=== PATIENT | female | born 1980 | race Caucasian/White ===

== ENCOUNTER 2017-05-24 02:42 | Outpatient (CLI) | payer MEDICAID ==
[2017-05-24 03:33] LABS: ADD UMIC NO; UR ASCORBIC ACID NEGATIVE (NEGATIVE); UR BILIRUBIN (Dip) NEGATIVE (NEGATIVE); UR BLOOD (Dip) NEGATIVE (NEGATIVE); UR CLARITY CLEAR (CLEAR); UR COLOR COLORLESS (YELLOW); UR GLUCOSE (Dip) NEGATIVE (NEGATIVE); UR KETONES (Dip) NEGATIVE (NEGATIVE); UR LEUKOCYTE ESTERASE (Dip) NEGATIVE Leu/ul (NEGATIVE); UR NITRITE (Dip) NEGATIVE (NEGATIVE); UR SPECIFIC GRAVITY (Dip) 1.002 (1.003-1.030); UR TOTAL PROTEIN (Dip) NEGATIVE (NEGATIVE); UR UROBILINOGEN (Dip) NEGATIVE (NEGATIVE)
== END 2017-05-24 05:45 | disposition home or self-care (01) ==
LOC: OBT 02:42 → L-D 02:45 → OBT 05:45
DX: O26.892 Other specified pregnancy related conditions, second trimester (principal); Z3A.20 20 weeks gestation of pregnancy; R10.2 Pelvic and perineal pain
CPT/HCPCS: 76817; 81003

== ENCOUNTER 2017-09-19 08:54 | Inpatient (IN) | payer MEDICAID ==
[2017-09-19 10:10] LABS: ADD UMIC NO; UR ASCORBIC ACID NEGATIVE (NEGATIVE); UR BILIRUBIN (Dip) NEGATIVE (NEGATIVE); UR BLOOD (Dip) NEGATIVE (NEGATIVE); UR CLARITY CLEAR (CLEAR); UR COLOR STRAW (YELLOW); UR GLUCOSE (Dip) NEGATIVE (NEGATIVE); UR KETONES (Dip) NEGATIVE (NEGATIVE); UR LEUKOCYTE ESTERASE (Dip) NEGATIVE Leu/ul (NEGATIVE); UR NITRITE (Dip) NEGATIVE (NEGATIVE); UR SPECIFIC GRAVITY (Dip) 1.002 (1.003-1.030); UR TOTAL PROTEIN (Dip) NEGATIVE (NEGATIVE); UR UROBILINOGEN (Dip) NEGATIVE (NEGATIVE)
[2017-09-19 10:11] LABS: RUPTURE FETAL MEMBRANES POSITIVE (NEGATIVE)
[2017-09-19] MEDS ORDERED: MISOPROSTOL 200 MCG TAB PR (11:00)
[2017-09-19] MEDS ORDERED: CARBOPROST 250 MCG INJ IM (11:00)
[2017-09-19] MEDS ORDERED: LIDOCAINE 1% (MPF) 30 ML INJ INJ (11:00)
[2017-09-19] MEDS ORDERED: BUTORPHANOL 2 MG INJ IV (11:00)
[2017-09-19] MEDS ORDERED: NA PHOSPHATE/BIPHOS 133 ML ENEMA PR (11:00)
[2017-09-19] MEDS ORDERED: OXYTOCIN 30 UNITS/LR 500 ML IV (11:00)
[2017-09-19] MEDS ORDERED: METHYLERGONOVINE 0.2 MG INJ IM (11:00)
[2017-09-19] MEDS: LACTATED RINGER'S 1,000 ML IV ×2 (12:04→18:45)
[2017-09-19 12:28] LABS: ADD MAN DIFF? NO
[2017-09-19 12:36] LABS: BASOPHIL # 0.1 10^3/ul (0.0-0.1); BASOPHILS % 0.5 % (0.0-2.0); EOSINOPHILS # 0.2 10^3/ul (0.0-0.5); EOSINOPHILS % 2.5 % (0.0-7.0); HEMATOCRIT 37.3 % (37.0-47.0); LYMPHOCYTES # 1.8 10^3/ul (0.8-2.9); LYMPHOCYTES % 18.3 % (15.0-51.0); MEAN CORPUSCULAR HEMOGLOBIN 30.4 pg (29.0-33.0); MEAN CORPUSCULAR HGB CONC 34.9 g/dl (32.0-37.0); MEAN CORPUSCULAR VOLUME 87.4 fl (82.0-101.0); MEAN PLATELET VOLUME 12.9 fl (7.4-10.4); MONOCYTE # 0.6 10^3/ul (0.3-0.9); MONOCYTES % 6.3 % (0.0-11.0); NEUTROPHILS % 71.9 % (39.0-77.0); PLATELET COUNT 181 10^3/UL (140-415); RED BLOOD COUNT 4.27 10^6/ul (4.20-5.40); RED CELL DISTRIBUTION WIDTH 12.6 % (11.5-14.5)
[2017-09-19 12:36] LABS: WHITE BLOOD COUNT 9.7 10^3/ul (4.8-10.8)
[2017-09-19 12:51] LABS: GLUCOSE 75 mg/dl (70-220)
[2017-09-19 13:01] LABS: INR 0.89; PARTIAL THROMBOPLASTIN TIME 26.7 Sec (25.0-35.0); PROTIME 12.1 Sec (11.9-14.9); PT RATIO 0.9
[2017-09-19 13:23] LABS: HEPATITIS B SURFACE ANTIGEN NEGATIVE (NEGATIVE)
[2017-09-19] MEDS: AMPICILLIN 2 GM/NS (PMX) 100 ML IVPB (14:40)
[2017-09-19 15:31] LABS: RAPID PLASMA REAGIN NONREACTIVE (NR)
[2017-09-19] MEDS: ACCU-CHEK XX ×2 (18:00→22:31)
[2017-09-19] MEDS ORDERED: EPHEDrine SULFATE 50 MG/5 ML SYG IV (18:00)
[2017-09-19] MEDS: DINOPROSTONE 10 MG VAG SUPP VAG (18:10)
[2017-09-19] MEDS: AMPICILLIN 1 GM/NS (PMX) 50 ML IVPB ×2 (18:45→22:32)
[2017-09-20] MEDS: AMPICILLIN 1 GM/NS (PMX) 50 ML IVPB ×6 (02:36→21:45)
[2017-09-20] MEDS: ACCU-CHEK XX ×7 (02:43→16:50)
[2017-09-20] MEDS: LACTATED RINGER'S 1,000 ML IV ×3 (04:45→19:37)
[2017-09-20] MEDS: OXYTOCIN 30 UNITS/LR 500 ML IV (17:42)
[2017-09-20] MEDS ORDERED: FENTAnyl 2MCG/ML-ROPIV 0.2% 100 ML BAG EPI (19:30)
[2017-09-20] MEDS ORDERED: ONDANSETRON 4 MG INJ IV (19:30)
[2017-09-20] MEDS ORDERED: NALOXONE (0.4 MG/ML) INJ IV (19:30)
[2017-09-20] MEDS ORDERED: DIPHENHYDRAMINE 50 MG INJ IV (19:30)
[2017-09-21] MEDS: LACTATED RINGER'S 1,000 ML IV (00:23)
[2017-09-21] MEDS ORDERED: MINERAL OIL LIGHT 10 ML VIAL TOP (00:30)
[2017-09-21] MEDS: OXYTOCIN 30 UNITS/LR 500 ML IV ×3 (02:00→06:05)
[2017-09-21] MEDS: IBUPROFEN 600 MG TAB PO ×5 (02:31→23:30)
[2017-09-21] MEDS ORDERED: METHYLERGONOVINE 0.2 MG INJ IM (05:00)
[2017-09-21] MEDS ORDERED: MISOPROSTOL 200 MCG TAB PR (05:00)
[2017-09-21] MEDS ORDERED: OXYCODONE/ASPIRIN (4.88/325) TAB PO (05:00)
[2017-09-21] MEDS ORDERED: CARBOPROST 250 MCG INJ IM (05:00)
[2017-09-21] MEDS ORDERED: ZOLPIDEM 5 MG TAB PO (05:00)
[2017-09-21] MEDS: WITCH HAZEL/GLYCERIN PAD PR (06:07)
[2017-09-21] MEDS: BENZOCAINE 20% 56 ML SPRAY TOP (06:07)
[2017-09-21] MEDS: LANOLIN 7 GM TUBE TOP (06:08)
[2017-09-21] MEDS: SENNA/DOCUSATE NA (8.6MG/50MG) TAB PO ×2 (10:17→21:21)
[2017-09-21] MEDS: CEPHALEXIN 500 MG CAP PO ×2 (17:51→23:29)
[2017-09-22] MEDS: CEPHALEXIN 500 MG CAP PO ×4 (05:34→23:51)
[2017-09-22] MEDS: IBUPROFEN 600 MG TAB PO ×4 (05:35→23:51)
[2017-09-22 07:20] LABS: ADD MAN DIFF? NO
[2017-09-22 07:23] LABS: WHITE BLOOD COUNT 10.8 10^3/ul (4.8-10.8)
[2017-09-22 07:23] LABS: BASOPHILS % 0.4 % (0.0-2.0); EOSINOPHILS # 0.3 10^3/ul (0.0-0.5); HEMATOCRIT 29.4 % (37.0-47.0); LYMPHOCYTES # 2.2 10^3/ul (0.8-2.9); LYMPHOCYTES % 20.7 % (15.0-51.0); MEAN CORPUSCULAR HEMOGLOBIN 30.5 pg (29.0-33.0); MEAN CORPUSCULAR VOLUME 89.6 fl (82.0-101.0); MEAN PLATELET VOLUME 12.2 fl (7.4-10.4); MONOCYTE # 0.5 10^3/ul (0.3-0.9); MONOCYTES % 4.4 % (0.0-11.0); NEUTROPHIL # 7.7 10^3/ul (1.6-7.5); NEUTROPHILS % 70.9 % (39.0-77.0); PLATELET COUNT 130 10^3/UL (140-415); RED BLOOD COUNT 3.28 10^6/ul (4.20-5.40); RED CELL DISTRIBUTION WIDTH 12.8 % (11.5-14.5)
[2017-09-22] MEDS: SENNA/DOCUSATE NA (8.6MG/50MG) TAB PO ×2 (08:57→20:51)
[2017-09-22] MEDS: OXYCODONE/ASPIRIN (4.88/325) TAB PO (16:38)
[2017-09-23] MEDS: IBUPROFEN 600 MG TAB PO ×2 (05:43→11:49)
[2017-09-23] MEDS: CEPHALEXIN 500 MG CAP PO ×2 (05:43→11:49)
[2017-09-23] MEDS: DIPHTH/TET/ACEL PERTUSS (ADULT) 0.5 ML VIAL IM* (07:32)
[2017-09-23] MEDS: SENNA/DOCUSATE NA (8.6MG/50MG) TAB PO (09:11)
== END 2017-09-23 14:20 | disposition home or self-care (01) | DRG 775 ==
LOC: OBT 08:54 → PP1 09-21 04:30 → L-D 08:54 → OBT 11:00 → L-D 11:00
PROC: 10E0XZZ Delivery of Products of Conception, External Approach (ICD-10-PCS; principal; 2017-09-20)
PROC: 3E033VJ Introduction of Other Hormone into Peripheral Vein, Percutaneous Approach (ICD-10-PCS; 2017-09-20)
DX: O24.420 Gestational diabetes mellitus in childbirth, diet controlled (principal); Z3A.37 37 weeks gestation of pregnancy; Z37.0 Single live birth
CPT/HCPCS: 62319; 76815; 81003; 82947; 82962; 84112; 85025; 85610; 85730; 86592; 86850; 86900; 86901; 87086; 87340; 99464